=== PATIENT | male | born 1980 | race Two or more races ===

== ENCOUNTER 2019-09-30 15:00 | Emergency (ER) | payer OTHER ==
[~2019-09-30] VITALS: Ht 185.4 cm; Wt 86.2 kg
[2019-09-30] MEDS ORDERED: Tetanus/Diptheria/Pertussis IM ONE (15:30)
--- NOTE | 2019-09-30 16:37 | Emergency Room Report ---
History of Present Illness General Chief Complaint: Wound Recheck/Suture Removal Source: Patient Present Illness HPI 39-year-old male with no significant past medical history here complaining of a laceration of left hand that started an hour prior to arrival. Patient was at work as he accidentally cut himself, 2 lacerations noted one on the left third finger and one on left knuckle. Patient has it wrapped and reports that the bleeding has been maintained. Is not up-to-date with tetanus shot. Rating pain 5 out of 10 without radiation. No motor or sensory deficits noted. Denies all other injuries, chest pain, shortness of breath, palpitation, no other associated symptoms. Allergies: Coded Allergies: No Known Allergies (Unverified , 09/30/19) Patient History Past Medical History: see triage record Past Surgical History: unable to obtain Pertinent Family History: none Immunizations: other - Tdap today Reviewed Nursing Documentation: PMH: Agreed; PSxH: Agreed Nursing Documentation-PMH Past Medical History: No Stated History Review of Systems All Other Systems: negative except mentioned in HPI Physical Exam Vital Signs Date Time Temp Pulse Resp B/P (MAP) Pulse Ox O2 Delivery O2 Flow Rate FiO2 09/30/19 15:06 98.1 57 20 142/87 (105) 98 Room Air Sp02 EP Interpretation: reviewed, normal General Appearance: no apparent distress, alert, GCS 15, non-toxic Head: normocephalic, atraumatic Eyes: bilateral eye normal inspection, bilateral eye PERRL ENT: hearing grossly normal, normal pharynx, no angioedema, normal voice Neck: full range of motion, supple/symm/no masses Respiratory: chest non-tender, lungs clear, normal breath sounds, no wheezing, speaking full sentences Cardiovascular #1: regular rate, rhythm, no edema, no murmur, normal capillary refill Cardiovascular #2: 2+ radial (R), 2+ radial (L) Gastrointestinal: normal bowel sounds, non tender, soft, non-distended, no guarding, no rebound Genitourinary: no CVA tenderness Musculoskeletal: back normal, digits/nails normal Neurologic: alert, motor strength/tone normal, oriented x3, sensory intact, responsive, speech normal Psychiatric: judgement/insight normal, memory normal, mood/affect normal, no suicidal/homicidal ideation Skin: laceration - left third knuckle, left third finger Lymphatic: no adenopathy Procedures Laceration/Wound Repair Laceration/Wound Repair : Consent: Verbal Wound Location: upper extremity - left hand Wound's Depth, Shape: superficial Wound Length (cm): 1 Wound Explored: clean Irrigated w/ Saline (ccs): 10 Betadine Prep?: Yes Anesthesia: Lidocaine w/ Epi Volume Anesthetic (ccs): 5 Wound Debrided: None Wound Repaired With: sutures, Steri-strips Suture Size/Type: 5:0, proline Number of Sutures: 7 Layer Closure?: Yes Sterile Dressing Applied?: Yes Splint Applied?: No Sling Applied?: No Patient Tolerated: Well Complications: None Medical Decision Making PA Attestation All my diagnosis and treatment plans were reviewed ad discussed with my supervising physician Dr. Suarez Diagnostic Impression: Primary Impression: Laceration of hand ER Course 39-year-old male with no significant past medical history here complaining of a laceration of left hand that started an hour prior to arrival. Patient was at work as he accidentally cut himself, 2 lacerations noted one on the left third finger and one on left knuckle. Patient has it wrapped and reports that the bleeding has been maintained. Is not up-to-date with tetanus shot. Rating pain 5 out of 10 without radiation. No motor or sensory deficits noted. Denies all other injuries, chest pain, shortness of breath, palpitation, no other associated symptoms. Ddx considered but are not limited to : Superficial laceration, deep laceration , tendon involvement with laceration, laceration with foreign body Vital signs: are WNL, pt. is afebrile H&PE are most consistent with: Superficial laceration of hand ORDERS: Hand x-ray, Augmentin, Motrin ED INTERVENTIONS: Wound closure, Tdap DISCHARGE: At this time pt. is stable for d/c to home. Will provide printed patient care instructions, and any necessary prescriptions. Care plan and follow up instructions have been discussed with the patient prior to discharge. Sutures to be removed in 7 to 10 days. Patient started feeling lightheaded while I was repairing however he started feeling better after oral hydration and eating cookies. Patient reported that he had not had any food all day. Patient vital signs remained within normal limits upon discharge. If worsening symptoms return to emergency room Other X-Ray Diagnostic Results Other X-Ray Diagnostic Results : X-Ray ordered: Left hand x-ray # of Views/Limited Vs Complete: 3 View Indication: Pain EP Interpretation: Yes PA Xray: Interpretation reviewed, by supervising MD, and agrees with findings. Interpretation: no dislocation, no soft tissue swelling, no fractures, other - No foreign body Impression: No acute disease Electronically Signed by: Shanique Casas PA-C Last Vital Signs Date Time Temp Pulse Resp B/P (MAP) Pulse Ox O2 Delivery O2 Flow Rate FiO2 09/30/19 15:06 98.1 57 20 142/87 (105) 98 Room Air Disposition: HOME, SELF-CARE Condition: Stable Scripts Ibuprofen* (MOTRIN*) 600 Mg Tablet 600 MG ORAL Q8H PRN for For Pain, #30 TAB 0 Refills Prov: Shanique Mora 09/30/19 Amoxicillin/Potassium Clav 875-125* (AUGMENTIN 875-125 TABLET*) 1 Each Tablet 1 TAB ORAL TWICE A DAY for 10 Days, #20 TAB Prov: Shanique Mora 09/30/19 Patient Instructions: Laceration Care, Adult Additional Instructions: Take medication as directed, follow-up with your primary care provider, sutures to be removed in 7 to 10 days. If worsening symptoms return to the emergency room Shanique Mora Sep 30, 2019 16:37
[2019-09-30] MEDS ORDERED: AUGMENTIN 875-1 EAC1 ORAL (16:38)
[2019-09-30] MEDS ORDERED: IBUPROFEN600 MG ORAL (16:38)
[2019-09-30 16:55] VITALS: BP 121/72
[2019-09-30 17:04] VITALS: BP 122/78
--- NOTE | 2019-10-01 11:03 | Diagnostic Imaging Report ---
Indication: Pain, trauma Technique: 3 views left hand Comparison: none Findings: No acute fractures. No dislocations. There is a small cyst within the capitate. Joint spaces are preserved. Impression: No acute process
== END 2019-09-30 17:05 | disposition home or self-care (01) ==
LOC: EMR 15:40
DX: S61.412A Laceration without foreign body of left hand, initial encounter (principal); Z23 Encounter for immunization; W45.8XXA Other foreign body or object entering through skin, initial encounter; Y92.9 Unspecified place or not applicable
CPT/HCPCS: 90471; 90715; 99283